=== PATIENT | male | born 2000 | race Caucasian/White ===

== ENCOUNTER 2024-06-26 17:20 | Emergency (ER) | payer OTHER, BC ==
[2024-06-26] MEDS: Acetaminophen 500 MG Tab PO ONE (17:57)
[2024-06-26] MEDS: Ketorolac 30 MG/ML SDV IM ONE (17:59)
[2024-06-26 18:15] VITALS: BP 157/96; PULSE 88
== END 2024-06-26 18:25 | disposition home or self-care (01) ==
LOC: KA.ED 17:20
DX: R51.9 Headache, unspecified (principal)
CPT/HCPCS: 96372; 99283; A9270-GY; J1885